=== PATIENT | male | born 1980 | race Caucasian/White ===

== ENCOUNTER 2017-08-09 20:46 | Emergency (ER) | payer MEDICAID ==
--- NOTE | 2017-08-09 21:17 | ED PDOC ---
HPI: Psych/Substance Abuse Time Seen by Provider: 08/09/17 21:09 Chief Complaint (Nursing): Psychiatric Evaluation Chief Complaint (Provider): Manic Episode History Per: Patient History/Exam Limitations: no limitations Current Symptoms Are (Timing): Still Present Suicide/Self Injury Attempted (Context): None Modifying Factor(s): None Associated Symptoms: denies: Suicidal Thoughts, Suicidal Plan Additional Complaint(s): Gordon Dumont, a 36 year old male, with a past medical history of bipolar disorder presents to the the ED for a manic episode. The patient reports that he cannot recall when last he took is medications. Denies homicidal /suicidal ideation. Past Medical History Reviewed: Historical Data, Nursing Documentation, Vital Signs Vital Signs: Last Vital Signs Temp 98.1 F 08/09/17 20:48 Pulse 69 08/09/17 20:48 Resp 18 08/09/17 20:48 BP 163/118 H 08/09/17 20:48 Pulse Ox 98 08/09/17 20:48 - Medical History PMH: Bipolar Disorder - Family History Family History: States: Unknown Family Hx - Allergies Allergies/Adverse Reactions: Allergies Allergy/AdvReac Type Severity Reaction Status Date / Time No Known Allergies Allergy Verified 08/09/17 20:47 Review of Systems ROS Statement: Except As Marked, All Systems Reviewed And Found Negative Psych: Positive for: Other (Manic episode) Physical Exam - Reviewed Nursing Documentation Reviewed: Yes Vital Signs Reviewed: Yes - Physical Exam Appears: Positive for: Non-toxic, No Acute Distress Head Exam: Positive for: ATRAUMATIC, NORMAL INSPECTION, NORMOCEPHALIC Skin: Positive for: Normal Color, Warm, Dry. Negative for: Rash Eye Exam: Positive for: Normal appearance, EOMI, PERRL ENT: Positive for: Normal ENT Inspection. Negative for: Nasal Congestion, Tonsillar Exudate, Tonsillar Swelling Neck: Positive for: Normal, Painless ROM, Supple Cardiovascular/Chest: Positive for: Regular Rate, Rhythm, Chest Non Tender. Negative for: Tachycardia Respiratory: Positive for: Normal Breath Sounds. Negative for: Rales, Rhonchi, Wheezing, Respiratory Distress Gastrointestinal/Abdominal: Positive for: Normal Exam, Bowel Sounds, Soft. Negative for: Tenderness, Mass, Guarding, Rebound Back: Positive for: Normal Inspection. Negative for: L CVA Tenderness, R CVA Tenderness Extremity: Positive for: Normal ROM. Negative for: Tenderness, Pedal Edema, Deformity, Swelling Neurologic/Psych: Positive for: Alert, Oriented, Gait. Negative for: Motor/ Sensory Deficits - ECG O2 Sat by Pulse Oximetry: 98 (RA) Pulse Ox Interpretation: Normal Medical Decision Making Medical Decision Makin Initial Impression 36 y/o male presenting with manic episode Initial Plan: * Reevaluation Scribe Attestation Documented by Bobbi Ventura acting as a scribe for Mykel Vázquez MD. Provider Attestation All medical record entries made by the Scribe were at my direction and personally dictated by me. I have reviewed the chart and agree that the record accurately reflects my personal performance of the history, physical exam, medical decision making, and the department course for this patient. I have also personally directed, reviewed, and agree with the discharge instructions and disposition. Disposition - Clinical Impression Clinical Impression: Bipolar 1 disorder - Patient ED Disposition Is Patient to be Admitted: Transfer of Care - Disposition Disposition: Transfer of Care Disposition Time: 00:00 Condition: FAIR Forms: [facility] (Romanian) Patient Signed Over To: Rodger Bill
[2017-08-09 23:50] LABS: BASO % 0.4 % (0.0-2.0); EOS % 0.2 % (0.0-4.0); HEMATOCRIT 42.4 % (35.0-51.0); LYMPH # 0.8 K/uL (1.0-4.3); LYMPH % 9.2 % (20.0-40.0); MEAN CELL VOLUME 87.8 fl (80.0-94.0); MEAN CORPUSCULAR HEMOGLOBIN 29.1 pg (27.0-31.0); MEAN CORPUSCULAR HGB CONC 33.1 g/dL (33.0-37.0); MEAN PLATELET VOLUME 8.7 fl (7.2-11.7); MONO # 0.5 K/uL (0.0-0.8); MONO % 5.3 % (0.0-10.0); NEUT # 7.8 K/uL (1.8-7.0); NEUT % 84.9 % (50.0-75.0); PLATELET COUNT 172 K/uL (130-400); RED CELL DISTRIBUTION WIDTH 14.1 % (11.5-14.5); WHITE BLOOD COUNT 9.2 K/uL (4.8-10.8)
[2017-08-09 23:59] LABS: ALB/GLOB RATIO 1.5 (1.0-2.1); ALCOHOL SERUM < 10 mg/dl (0-10); ALKALINE PHOSPHATASE 50 U/L (38-126); ALT/SGPT 35 U/L (21-72); AST/SGOT 22 U/L (17-59); BILIRUBIN,TOTAL 1.8 mg/dl (0.2-1.3); BLOOD UREA NITROGEN 11 mg/dl (9-20); CALCIUM 9.4 mg/dL (8.4-10.2); CARBON DIOXIDE 27 mmol/L (22-30); CHLORIDE 104 mmol/L (98-107); GFR AFRICAN-AMERICAN > 60; GLUCOSE,RANDOM 186 mg/dL (75-110); POTASSIUM 3.6 MMOL/L (3.6-5.0); SODIUM 139 mmol/l (132-148); TOTAL PROTEIN 6.8 G/DL (6.3-8.2)
[2017-08-10 01:50] LABS: LARGE PLATELETS PRESENT; NEUTROPHIL 85 % (42-75); TOTAL CELLS COUNTED 100
--- NOTE | 2017-08-10 03:12 | ED PDOC ---
- Laboratory Results Result Diagrams: 08/09/17 23:45 08/09/17 23:45 - ECG O2 Sat by Pulse Oximetry: 97 Pulse Ox Interpretation: Normal Medical Decision Making Medical Decision Makin Pt. signed out to me by Dr. Vázquez [place] [facility] [place]. 300 Pt. resting quietly. 600 Pt. medically cleared for psych admission. [address]700 Pt[address] signed out to Dr. Ojeda [place] [facility] [place]. Disposition - Clinical Impression Clinical Impression: Bipolar 1 disorder - POA Present On Arrival: None - Disposition Disposition: Transfer of Care Disposition Time: 07:00 Condition: FAIR Forms: [facility] (Equ[place]an) Patient Signed Over To: Ashwini Ojeda Handoff Comments: pending [facility] [place]
[2017-08-10 05:47] LABS: RBC URINE 3 /hpf (0-3); URINE BACTERIA OCC (<OCC); URINE BILIRUBIN NEGATIVE (NEGATIVE); URINE BLOOD NEGATIVE (NEGATIVE); URINE CALCIUM OXALATE CRYSTALS OCC /hpf (<OCC); URINE COLOR YELLOW (YELLOW); URINE GLUCOSE (UA) NEG (Normal); URINE KETONE TRACE mg/dL (NEGATIVE); URINE LEUKOCYTE ESTERASE NEG Leu/uL (Negative); URINE PROTEIN 30 mg/dL (NEGATIVE); URINE UROBILINOGEN 0.2-1.0 mg/dL (0.2-1.0); WBC URINE 3 /hpf (0-5)
--- NOTE | 2017-08-10 07:11 | ED PDOC ---
- Laboratory Results Result Diagrams: 08/09/17 23:45 08/09/17 23:45 - ECG O2 Sat by Pulse Oximetry: 98 Medical Decision Making Medical Decision Makin:00 Patient signed out to me by Dr. Bill pending [facility] [place]. 14:30 Patient has been calm and cooperative. 15:00 Patient has been accepted for admission at [facility] [place] for involuntary psych, waiting for bed at medical center. Patient will be signed out to Dr. Murphy while waiting for bed. Scribe Attestation: Documented by Marcela De La O, acting as a scribe for Ashwini Ojeda MD. Provider Scribe Attestation: All medical record entries made by the Scribe were at my direction and personally dictated by me. I have reviewed the chart and agree that the record accurately reflects my personal performance of the history, physical exam, medical decision making, and the department course for this patient. I have also personally directed, reviewed, and agree with the discharge instructions and disposition. Disposition - Clinical Impression Clinical Impression: Bipolar 1 disorder - POA Present On Arrival: None - Disposition Disposition: Transfer of Care Disposition Time: 15:00 Condition: STABLE Forms: [employer] (Danish) Patient Signed Over To: Tamara Murphy
--- NOTE | 2017-08-10 10:14 | RAD ---
HISTORY: cough COMPARISON: No prior. FINDINGS: LUNGS: No active pulmonary disease. PLEURA: No significant pleural effusion identified, no pneumothorax apparent. CARDIOVASCULAR: Normal. OSSEOUS STRUCTURES: No significant abnormalities. VISUALIZED UPPER ABDOMEN: Normal. OTHER FINDINGS: None. IMPRESSION: No acute cardiopulmonary disease appreciated.
--- NOTE | 2017-08-10 15:12 | ED PDOC ---
- Laboratory Results Result Diagrams: 08/09/17 23:45 08/09/17 23:45 - ECG O2 Sat by Pulse Oximetry: 98 Medical Decision Making Medical Decision Makin:00 Patient signed out to me by Dr. Ojeda, patient has been accepted for admission at [facility] [place] and is currently waiting for bed. 20:00 Pt attempted to leave ER. Will no respond to redirection. Medicated for acute psychosis and anxiety. 24:[address] Bill. Pending bed availability at [facility] for involuntary psychiatric hospitalization. Stable. Scribe Attestation: Documented by Marcela De La O, acting as a scribe for Tamara Murphy MD. Provider Scribe Attestation: All medical record entries made by the Scribe were at my direction and personally dictated by me. I have reviewed the chart and agree that the record accurately reflects my personal performance of the history, physical exam, medical decision making, and the department course for this patient. I have also personally directed, reviewed, and agree with the discharge instructions and disposition. Disposition - Clinical Impression Clinical Impression: Bipolar 1 disorder - POA Present On Arrival: None - Disposition Disposition: Transfer of Care Disposition Time: 00:00 Condition: STABLE Forms: [employer] (Khmer)
[2017-08-10 18:06] VITALS: RESP 18
[2017-08-11 04:28] VITALS: BP 131/61; PULSE 68; TEMP 98.1
--- NOTE | 2017-08-11 04:43 | ED PDOC ---
- Laboratory Results Result Diagrams: 08/09/17 23:45 08/09/17 23:45 - ECG O2 Sat by Pulse Oximetry: 97 Interpretation Of Abnormal: Pt. to be transferred to [facility] [place]. Stable condition. Disposition - Clinical Impression Clinical Impression: Bipolar 1 disorder - POA Present On Arrival: None - Disposition Disposition: Other Institution ([facility] [place]) Disposition Time: 04:42 Condition: FAIR Forms: [employer] (Tamazight)
[2017-08-11 16:30] VITALS: O2SAT 98
--- NOTE | 2017-08-12 12:40 | CARD ---
APPROVED REPORT EKG Measurement Heart [id number] <Conclusion> Normal sinus rhythm Normal ECG
== END 2017-08-11 05:34 | disposition short-term general hospital (02) ==
LOC: H.ER 20:46
DX: F31.9 Bipolar disorder, unspecified (principal)
CPT/HCPCS: 71010; 80053; 80320; 80324; 80345; 80346; 80349; 80353; 80358; 80361; 81003; 83992; 85025; 93005; 96372; 99285; J1630; J2060